=== PATIENT | female | born 1980 | race Caucasian/White ===

== ENCOUNTER → 2022-06-13 13:43 | Outpatient (CLI) | payer OTHER, MEDICAID, SELFPAY ==
[2022-06-13 14:13] LABS: Add Manual Diff / Slide Review NO; Basophils Absolute Auto 100 /uL (0-100); Basophils Percent Auto 0.8 % (0-2); Eosinophils Absolute Auto 100 /uL (0-450); Eosinophils Percent Auto 1.6 % (2-4); Hematocrit 39.7 % (36-46); Lymphocytes Absolute Auto 2100 /uL (1100-4500); Lymphocytes Percent Auto 28.4 % (25-40); Mean Corpuscular HGB Conc 35.2 % (30-36); Mean Corpuscular Hemoglobin 31.1 PG (26-34); Mean Corpuscular Volume 88.3 fL (80-100); Monocytes Absolute Auto 400 /uL (0-900); Monocytes Percent Auto 4.8 % (3-14); Neutrophils Absolute Auto 4800 /uL (1500-7000); Neutrophils Percent Auto 64.4 % (50-75); Platelet Count 308 X10^3/uL (150-400); Red Blood Cell Count 4.49 X10^6/uL (4.0-5.2); Red Cell Distribution Width 12.8 % (11.6-14.8); White Blood Cell Count 7.4 X10^3/uL (4.5-11.0)
[2022-06-13 14:26] LABS: Hemoglobin A1C% w Est Avg Glu 4.7 % (4.0-6.0)
[2022-06-13 14:51] LABS: Alanine Aminotransferase 19 IU/L (<35); Albumin 4.6 g/dL (3.5-5.0); Albumin Globulin Ratio 1.4 (1.0-2.8); Alkaline Phosphatase 52 U/L (38-126); Aspartate Aminotransferase 25 IU/L (14-36); BUN Creatinine Ratio 19.4 (6-22); Bilirubin Total 0.5 mg/dL (0.2-1.3); Blood Urea Nitrogen 12 mg/dL (7-17); Calcium 8.8 mg/dL (8.4-10.2); Carbon Dioxide 24 mmol/L (22-32); Chloride 104 mmol/L (98-107); Cholesterol 270 mg/dL (140-199); Estimated Glomerular Filt Rate > 60 mL/min (>60); Globulin 3.2 g/dL (1.7-4.1); Glucose 95 mg/dL (70-100); HDL Cholesterol 62 mg/dL (40-60); HEMOLYSIS 20 (0-50); LDL Cholesterol Calculated 185 mg/dL (<100); Potassium 3.9 mmol/L (3.4-5.1); Sodium 137 mmol/L (137-145); Total Protein 7.8 g/dL (6.3-8.2); Triglycerides 115 mg/dL (35-150)
[2022-06-13 15:20] LABS: TSH w/ Reflex to FT4 2.45 uIU/mL (0.47-4.68)
[2022-06-13 15:37] LABS: Vitamin B12 342 pg/mL (239-931)
== END ==
PROVIDERS: PCP Family Medicine; Referring Provider Family Medicine; Visit Provider Family Medicine
DX: I10 Essential (primary) hypertension (principal); R20.2 Paresthesia of skin; U07.1 COVID-19; Z90.710 Acquired absence of both cervix and uterus
CPT/HCPCS: 36415; 80053; 80061; 82607; 83036; 84443; 85025

== ENCOUNTER → 2022-08-15 14:47 | Outpatient (CLI) | payer OTHER, MEDICAID, SELFPAY ==
[2022-08-15 19:31] LABS: Erythrocyte Sedimentation Rate 16 MM/HR (0-20)
[2022-08-15 19:39] LABS: Follicle Stimulating Hormone 2.89 mIU/mL; Luteinizing Hormone 4.09 mIU/mL
[2022-08-15 20:37] LABS: C-Reactive Protein Quant 1.3 mg/dL (<1.0)
[2022-08-15 20:38] LABS: Rheumatoid Factor < 8.6 IU/mL (<12.0)
[2022-08-20 14:51] LABS: ANA Screen, IFA Negative (.)
[2022-08-21 20:38] LABS: Estrogen 228 pg/mL (.)
== END ==
PROVIDERS: PCP Family Medicine; Referring Provider Family Medicine; Visit Provider Family Medicine
DX: M25.50 Pain in unspecified joint (principal); R23.2 Flushing
CPT/HCPCS: 36415; 82672; 83001; 83002; 85651; 86038; 86140; 86430